=== PATIENT | female | born 1985 | race African-American/Black ===

== ENCOUNTER 2021-08-01 04:21 | Day surgery (SDC) | payer OTHER ==
[2021-08-01 08:46] VITALS: BMI 33.7
[2021-08-01] MEDS ORDERED: MIDAZOLAM HCL 2 MG/2 ML SINGLE DOSE VIAL ONE (11:01)
[2021-08-01] MEDS ORDERED: PROPOFOL 20 ML ONE ×2 (11:36)
[2021-08-01] MEDS ORDERED: IBUPROFEN 600 MG TABLET (FP) PO PRN (11:43)
[2021-08-01] MEDS ORDERED: IBUPROFEN 800 MG/8 ML IJ IVPB PRN (11:43)
[2021-08-01] MEDS ORDERED: oxyCODONE HCL 5 MG TABLET PO PRN (11:43)
[2021-08-01] MEDS ORDERED: ONDANSETRON 4 MG/2 ML VIAL IVPUSH PRN (11:43)
[2021-08-01] MEDS ORDERED: ELECTROLYTE-148 SOLN 1,000 ML IV SCH (11:45)
[2021-08-01] MEDS ORDERED: LACTATED RINGERS SOLUTION 1,000 ML IV SCH (12:15)
[2021-08-01] MEDS ORDERED: diphenhydrAMINE HCL 25 MG CAPSULE (FP) PO ONE ×2 (13:02)
[2021-08-01] MEDS ORDERED: ONDANSETRON 4 MG/2 ML VIAL ONE (13:24)
[2021-08-01 15:04] VITALS: TEMP 97.9
[2021-08-01 15:12] VITALS: BP 112/67; PULSE 73
== END 2021-08-01 15:00 | disposition home or self-care (01) ==
LOC: JASU-SURG 04:21
PROVIDERS: ATTEND Obstetrics & Gynecology
PROC: 0UDB7ZX Extraction of Endometrium, Via Natural or Artificial Opening, Diagnostic (ICD-10-PCS; 2021-08-01)
PROC: 0UB98ZX Excision of Uterus, Via Natural or Artificial Opening Endoscopic, Diagnostic (ICD-10-PCS; principal; 2021-08-01 10:00)
DX: N93.8 Other specified abnormal uterine and vaginal bleeding (principal); N84.0 Polyp of corpus uteri
CPT/HCPCS: 81025; 88305-TC; 94760